=== PATIENT | male | born 1990 | race Caucasian/White ===

== ENCOUNTER 2019-08-06 13:25 | Emergency (ER) | payer OTHER ==
[~2019-08-06] VITALS: Ht 170.2 cm; Wt 74.0 kg
[2019-08-06] MEDS ORDERED: LIDOCAINE 2% 20 ML VIAL. ONE (13:33)
[2019-08-06] MEDS ORDERED: ONDANSETRON PF 4 MG/2 ML VIAL. IVP ONE (14:00)
--- NOTE | 2019-08-06 14:05 | PHYS DOC ---
General Adult EDM: Chief Complaint: LACERATION/AVULSION HPI: HPI: 29-year-old male presents with with left thumb laceration. 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 He took off an entire piece through the distal 15% of the nail. It is a clean cut. Patient started bleeding immediately. They wrapped it and he came to the emergency room. The patient did bring the piece. He denies any other injuries at this time. Review of Systems: Review of Systems: Constitutional: Denies fever or chills Eyes: Denies change in visual acuity HENT: Denies nasal congestion or sore throat Respiratory: Denies cough or shortness of breath Cardiovascular: Denies chest pain or edema GI: Denies abdominal pain, nausea, vomiting, bloody stools or diarrhea : Denies dysuria Musculoskeletal: Laceration left thumb Integument: Denies rash Neurologic: Denies headache, focal weakness or sensory changes Endocrine: Denies polyuria or polydipsia Lymphatic: Denies swollen glands Psychiatric: Denies depression or anxiety Heart Score: Risk Factors: Risk Factors: DM, Current or recent (<one month) smoker, HTN, HLP, family history of CAD, obesity. Risk Scores: Score 0 - 3: 2.5% MACE over next 6 weeks - Discharge Home Score 4 - 6: 20.3% MACE over next 6 weeks - Admit for Clinical Observation Score 7 - 10: 72.7% MACE over next 6 weeks - Early Invasive Strategies Current Medications: Current Meds: Current Medications Medications (Trade) Dose Ordered Sig/[facility] Start Time Stop Time Status Last Admin Dose Admin Fentanyl Citrate (Fentanyl 2ml Vial) 75 mcg 1X ONCE 08/06/19 14:00 08/06/19 14:01 UNV Lidocaine HCl 20 ml STK-MED ONCE 08/06/19 13:33 08/06/19 13:33 DC Ondansetron HCl (Zofran) 4 mg 1X ONCE 08/06/19 14:00 08/06/19 14:01 UNV Allergies: Allergies: Allergies Coded Allergies Type Severity Reaction Last Updated Verified No Known Drug Allergies 08/06/19 No Physical Exam: PE: Constitutional: Well developed, well nourished, mild acute distress, non-toxic appearance. [] HENT: Normocephalic, atraumatic, bilateral external ears normal, oropharynx moist, no oral exudates, nose normal. [] Eyes: PERRLA, EOMI, conjunctiva normal, no discharge. [] Neck: Normal range of motion, no tenderness, supple, no stridor. [] Cardiovascular:Heart rate regular rhythm, no murmur [] Lungs & Thorax: Bilateral breath sounds clear to auscultation [] Abdomen: Bowel sounds normal, soft, no tenderness, no masses, no pulsatile masses. [] Skin: Warm, dry, no erythema, no rash. [] Back: No tenderness, no CVA tenderness. [] Extremities: The patient cut off the distal portion of his left thumb distal to the bone, involving distal nailbed [] Neurologic: Alert and oriented X 3, normal motor function, normal sensory function, no focal deficits noted. [] Psychologic: Affect normal, judgement normal, mood normal. [] EKG: EKG: [] Radiology/Procedures: Radiology/Procedures: [] Course & Med Decision Making: Course & Med Decision Making Pertinent Labs and Imaging studies reviewed. (See chart for details) The patient cut out the end of his left thumb. He does not practical to reattach it. There was no bony involvement based on x-ray. I spoke with Dr. Burdick and he recommended we discussed with a hand surgeon at . I spoke with Dr. Mcclelland at and he would like to see the patient as an outpatient. He is recommended that would cover with Xeroform and gauze. We will do that. The patient is stable for discharge at this time. We updated his tetanus in the emergency room. [] Dragon Disclaimer: Bebeto Disclaimer: This electronic medical record was generated, in whole or in part, using a voice recognition dictation system. Departure Departure: Impression: Primary Impression: Traumatic amputation of thumb (complete) (partial) Qualified Codes: S68.012A - Complete traumatic metacarpophalangeal amputation of left thumb, initial encounter Disposition: 01 HOME, SELF-CARE Condition: STABLE Patient Instructions: Fingertip Injuries and Amputations Additional Instructions: Please call Dr. Mcclelland, orthopedic surgeon at for an appointment. You can call today or tomorrow to make this appointment at [phone] Scripts Hydrocodone Bit/Acetaminophen (NORCO 7.5-325 TABLET) 1 Each Tablet 1 TAB PO PRN Q6HRS PRN for PAIN, #14 TAB 0 Refills Prov: BREE HUNTER DO 08/06/19 BREE HUNTER DO August 06, 2019 14:05
--- NOTE | 2019-08-06 14:07 | RAD ---
EXAM: Left thumb, 3 views. HISTORY: Amputation. COMPARISON: None. FINDINGS: 3 views of the left thumb are obtained. There is bandage material overlying the distal aspect of the first phalanx, with associated soft tissue defect at the tip of the first phalanx. There is no fracture, dislocation or subluxation. No foreign body is seen. IMPRESSION: Suspected slight amputation of the distal soft tissues of the thumb. No fracture or foreign body is seen. Electronically signed by: Jazmyn Mccann MD (08/06/2019 2:04 PM) [id number]
[2019-08-06 14:12] VITALS: BP 116/57
[2019-08-06 14:15] LABS: BASO # 0.1 x10^3/uL (0.0-0.2); BASO % 1 % (0-3); EOS # 0.1 x10^3/uL (0.0-0.7); EOS % 2 % (0-3); HEMATOCRIT 41.1 % (39.0-53.0); HEMOGLOBIN 13.5 g/dL (13.0-17.5); LYMPH # 2.7 x10^3/uL (1.0-4.8); LYMPH % 41 % (24-48); MEAN CORPUSCULAR HEMOGLOBIN 31 pg (25-35); MEAN CORPUSCULAR HGB CONC 33 g/dL (31-37); MEAN CORPUSCULAR VOLUME 94 fL (79-100); MONO # 0.5 x10^3/uL (0.0-1.1); MONO % 8 % (0-9); NEUT # 3.2 x10^3uL (1.8-7.7); NEUT % 48 % (31-73); PLATELET COUNT 208 x10^3/uL (140-400); RED BLOOD COUNT 4.35 x10^6/uL (4.30-5.70); RED CELL DISTRIBUTION WIDTH 14.3 % (11.5-14.5); WHITE BLOOD COUNT 6.7 x10^3/uL (4.0-11.0)
[2019-08-06 14:26] LABS: CALCIUM 8.4 mg/dL (8.5-10.1); GFR 87.2; POTASSIUM 4.1 mmol/L (3.5-5.1)
[2019-08-06 14:31] LABS: ALBUMIN 3.6 g/dL (3.4-5.0); ALBUMIN/GLOBULIN RATIO 1.2 (1.0-1.7); TOTAL BILIRUBIN 0.5 mg/dL (0.2-1.0); TOTAL PROTEIN 6.6 g/dL (6.4-8.2)
[2019-08-06] MEDS ORDERED: HYDR-3166 PO (15:57)
[2019-08-06] MEDS ORDERED: DIPH,PERTUSS(ACELL),TET VAC/PF 0.5 ML SYRINGE. VAX IM ONE (16:00)
== END 2019-08-06 16:15 | disposition home or self-care (01) ==
LOC: ER 13:25
DX: S68.012A Complete traumatic metacarpophalangeal amputation of left thumb, initial encounter (principal); W26.0XXA Contact with knife, initial encounter; Y93.G3 Activity, cooking and baking; Y92.89 Other specified places as the place of occurrence of the external cause; Y99.8 Other external cause status
CPT/HCPCS: 36415; 73140; 80053; 85025; 85610; 85730; 96374; 96375; 99284; J2405; J3010